=== PATIENT | male | born 1975 | race Hispanic/Latino ===

== ENCOUNTER 2018-06-19 14:10 | Emergency (ER) | payer MEDICARE, MEDICAID ==
--- NOTE | 2018-06-19 15:57 | ED PDOC ---
HPI: Trauma/Fall - HPI Time Seen by Provider: 06/19/18 14:50 Chief Complaint (Nursing): Trauma Chief Complaint (Provider): Trauma History Per: Patient Additional Complaint(s): 42 y/o M with hx of ulcerative colitis, chronic pain on chronic opioids, and depression who presents with trauma after fall in a hotel room today. Pt states that he was walking in his hotel room today and went to open curtains to see more when he tripped and fell over the garbage can, which he stated several times was not in the right place as usually they place it under the desk. Pt states that he fell onto B/L knees then fell forward onto his face. Denies drinking alcohol or drug use. He is unsure if he had LOC but then states that he recalled what happened after the event. He had some visual blurriness immediately after the event but has none now. He has neck pain and is concerned about his neck as he had cervical spine fusion in the past. Denies N/V, BARTON. Admits to being in pain management and taking oxycodone but denies taking any medications today. - Fall Fall:Prior To Injury: Tripped, Lost Balance Past Medical History Reviewed: Historical Data, Nursing Documentation, Vital Signs - Medical History Other PMH: ulcerative colitis, chronic pain - Family History Family History: States: Unknown Family Hx - Home Medications Home Medications: Ambulatory Orders Medication Instructions Recorded Acetaminophen [Tylenol 325mg tab] 650 mg PO Q6 PRN 7 Days tab 06/19/18 - Allergies Allergies/Adverse Reactions: Allergies Allergy/AdvReac Type Severity Reaction Status Date / Time Penicillins Allergy Severe ANAPHYLAXIS Verified 06/19/18 15:20 metoclopramide [From Reglan] AdvReac Intermediate PAIN Verified 06/19/18 15:19 Physical Exam - Reviewed Nursing Documentation Reviewed: Yes Vital Signs Reviewed: Yes - Physical Exam Appears: Positive for: Uncomfortable Head Exam: Negative for: ATRAUMATIC (+ swelling and mild ecchymosis over nasal bridge and forehead. ) Skin: Positive for: Rash (multiple areas of excoriation on ears, face, arms. mild erythematous irritation in intertrigenous area in lower abdomen, no swelling or drainage.) Eye Exam: Positive for: EOMI, PERRL, Nystagmus. Negative for: Periorbital swelling ENT: Positive for: TM Is/Are (normal. + excoriation in earlobe). Negative for: Sinus Pain/Drainage, Nasal Congestion Neck: Positive for: Decreased ROM (with left lateral rotation and flexion at the neck) Cardiovascular/Chest: Positive for: Regular Rate, Rhythm Respiratory: Positive for: Normal Breath Sounds Gastrointestinal/Abdominal: Positive for: Normal Exam Back: Positive for: Normal Inspection, Vertebral Tenderness (mild cervical spine tenderness on palpation), Other Extremity: Positive for: Normal ROM (flexion and extension of ankle and knees B/L), Other (no ecchymosis, swelling or deformity noted. Mild tenderness on palpation of left knee. ) Neurologic/Psych: Positive for: Alert, lute packer or applier II-XII (intact, able to perform alternating finger to nose), Oriented. Negative for: Aphasia, Facial Droop Medical Decision Making Medical Decision Making: Cervical spine, head and maxillofacial CT Toradol 30mg IM x 1 Left knee x-ray 17:50: re-evaluated, continues to have B/L anterior thigh numbness. Pt noted to have been ambulating with stable gait around room several times during ER visit. Continues to have neck pain but Toradol has not been given as of yet. Head CT: FINDINGS: HEMORRHAGE: No acute parenchymal, subarachnoid or extra-axial hemorrhage. BRAIN: No evidence of large acute infarct. No obvious parenchymal nor extra-axial masses or collections seen on this noncontrast study. VENTRICLES: No obstructive hydrocephalus. Note made of mild asymmetry of the lateral ventricles right-sided which is slightly larger than the left side felt to be a anatomic variation. CALVARIUM: Calvarium appears grossly intact.. PARANASAL SINUSES: Unremarkable as visualized. No significant inflammatory changes. MASTOID AIR CELLS: Unremarkable as visualized. No inflammatory changes. OTHER FINDINGS: Note made what appears to represent a left mandibular condylar prosthesis which has been attached by a side plate to the lateral aspect of the left mandibular ramus. IMPRESSION: No acute intracranial hemorrhage.. Cervical Spine CT: FINDINGS: VERTEBRAE: No acute compression fractures nor retropulsed fragments. Vertebral bodies exhibit normal stature. There has been ACDF at the C5-C6 level.. Two level anterior fixation plate is attached to the C5 and C6 segments. Hardware appears intact without evidence of loosening or infection. DISCS/SPINAL CANAL/NEURAL FORAMINA: Degenerative spondylosis at the C5-C6 level includes small irregular osteophytic ridge changes contiguous with hypertrophic uncovertebral joints right larger than left. The facets also hypertrophic more so on the right side. There is bilateral foraminal stenosis of right greater than left. Central canal appears slightly narrowed as well. The at the C6-C7 level, the slightly overgrown uncovertebral joints are present. The exit foramina appear narrowed bilaterally. No large disc herniation is identified.. The remaining levels exhibit relatively adequate disc height. No disc herniation or significant disc bulges. Facet joints are mildly hypertrophic bilaterally at the C2-C3 level right greater than left the slightly overgrown bilaterally at the C3-C4 level with mild to moderate facet overgrowth L4-L5 level.. PARASPINAL SOFT TISSUES: Unremarkable. OTHER FINDINGS: Mild passive/dependent type atelectasis felt be present both lung apices.. IMPRESSION: ACDF C5-C6 level. Hardware appears intact without evidence of failure. Degenerative. Mild multilevel degenerative spondylosis most notably affecting the C5-C6 level as detailed above. Maxillofacial CT: FINDINGS: NASAL BONES: No definitive evidence of acute displaced nasal bone fractures however there may be questionable old of nasal bone fracture deformities. There is mild soft tissue swelling overlying the nasal bones with extension medially into the pre maxillary soft tissues. . ORBITS: There may also be some mild supraorbital and inferior frontal soft tissue swelling. Globes intact and lenses appropriately located. There are no retrobulbar hemorrhages or collections. Optic nerves and extraocular musculature unremarkable. PARANASAL SINUSES/ MASTOIDS: Minimal mucosal thickening within the sphenoid sinus. Minimal mucosal thickening right maxillary antrum. MAXILLA: Unremarkable. MANDIBLE/ TEMPOROMANDIBULAR JOINTS: Note there is a left mandibular condylar prosthesis which has been attached by a side plate to the lateral aspect of the left mandibular ramus. Degenerative changes right TMJ with anterior subluxation with respect to the right mandibular condylar fossa. . SKULL BASE: Unremarkable. TEMPORAL BONES: Middle ears and mastoid grossly unremarkable. OTHER FINDINGS: None. IMPRESSION: The questionable old healed fracture deformities of the nasal bones. There is mild soft tissue swelling overlying the nasal bones which extend medially into the pre maxillary soft tissues and. There may also be some mild supraorbital/inferior frontal soft tissue swelling. Left mandibular condylar prosthesis which has been attached by a side plate to the lateral aspect of the left mandibular ramus. Degenerative changes right TMJ with anterior subluxation with respect to the right mandibular condylar fossa. Patient advised to f/u with neurology re: thigh numbness and to return to ER if he is unable to ambulate due to leg weakness. Referrals to orthopedics and neurology given upon discharge. Patient demonstrated understanding and ambulated with a steady gait without assistance upon discharge. Disposition - Clinical Impression Clinical Impression: Facial trauma - Patient ED Disposition Is Patient to be Admitted: No Counseled Patient/Family Regarding: Studies Performed, Diagnosis, Need For Followup, Rx Given - Disposition Referrals: Philly Martin MD [Medical Doctor] - Reji Dickson MD [Staff Provider] - Disposition: Routine/Home Disposition Time: 18:00 Condition: STABLE Additional Instructions: F/u with a neurologist or orthopedist for further evaluation of thigh numbness if it persists. Take Tylenol for pain or Aleve (Naproxen) if you have tolerated it in the past. Return to ER if you develop inability to walk, dizziness, nausea or vomiting. Prescriptions: Acetaminophen [Tylenol 325mg tab] 650 mg PO Q6 PRN 7 Days tab PRN Reason: Pain, Moderate (4-7) Forms: [facility] (Slovak) Print Language: SAMMARINESE
--- NOTE | 2018-06-19 16:47 | CT ---
Date of service: 06/19/2018 PROCEDURE: CT HEAD WITHOUT CONTRAST. HISTORY: Questionable high LOC after facial trauma COMPARISON: Correlation made with concurrent CT scan maxillofacial skeleton.. TECHNIQUE: Axial computed tomography images were obtained through the head/brain without intravenous contrast. Radiation dose: Total exam DLP = 1551.4 mGy-cm. This CT exam was performed using one or more of the following dose reduction techniques: Automated exposure control, adjustment of the mA and/or kV according to patient size, and/or use of iterative reconstruction technique. FINDINGS: HEMORRHAGE: No acute parenchymal, subarachnoid or extra-axial hemorrhage. BRAIN: No evidence of large acute infarct. No obvious parenchymal nor extra-axial masses or collections seen on this noncontrast study. VENTRICLES: No obstructive hydrocephalus. Note made of mild asymmetry of the lateral ventricles right-sided which is slightly larger than the left side felt to be a anatomic variation. CALVARIUM: Calvarium appears grossly intact.. PARANASAL SINUSES: Unremarkable as visualized. No significant inflammatory changes. MASTOID AIR CELLS: Unremarkable as visualized. No inflammatory changes. OTHER FINDINGS: Note made what appears to represent a left mandibular condylar prosthesis which has been attached by a side plate to the lateral aspect of the left mandibular ramus. IMPRESSION: No acute intracranial hemorrhage..
--- NOTE | 2018-06-19 16:53 | CT ---
Date of service: 06/19/2018 PROCEDURE: CT MAXILLOFACIAL BONES WITHOUT CONTRAST HISTORY: Fall onto face with nasal swelling status COMPARISON: None available. TECHNIQUE: Contiguous axial CT images of the maxillofacial bones were obtained. Coronal and sagittal reformats were generated. Radiation dose: Total exam DLP = 1551.4 mGy-cm. This CT exam was performed using one or more of the following dose reduction techniques: Automated exposure control, adjustment of the mA and/or kV according to patient size, and/or use of iterative reconstruction technique. FINDINGS: NASAL BONES: No definitive evidence of acute displaced nasal bone fractures however there may be questionable old of nasal bone fracture deformities. There is mild soft tissue swelling overlying the nasal bones with extension medially into the pre maxillary soft tissues. . ORBITS: There may also be some mild supraorbital and inferior frontal soft tissue swelling. Globes intact and lenses appropriately located. There are no retrobulbar hemorrhages or collections. Optic nerves and extraocular musculature unremarkable. PARANASAL SINUSES/ MASTOIDS: Minimal mucosal thickening within the sphenoid sinus. Minimal mucosal thickening right maxillary antrum. MAXILLA: Unremarkable. MANDIBLE/ TEMPOROMANDIBULAR JOINTS: Note there is a left mandibular condylar prosthesis which has been attached by a side plate to the lateral aspect of the left mandibular ramus. Degenerative changes right TMJ with anterior subluxation with respect to the right mandibular condylar fossa. . SKULL BASE: Unremarkable. TEMPORAL BONES: Middle ears and mastoid grossly unremarkable. OTHER FINDINGS: None. IMPRESSION: The questionable old healed fracture deformities of the nasal bones. There is mild soft tissue swelling overlying the nasal bones which extend medially into the pre maxillary soft tissues and. There may also be some mild supraorbital/inferior frontal soft tissue swelling. Left mandibular condylar prosthesis which has been attached by a side plate to the lateral aspect of the left mandibular ramus. Degenerative changes right TMJ with anterior subluxation with respect to the right mandibular condylar fossa.
--- NOTE | 2018-06-19 17:08 | RAD ---
Date of service: 06/19/2018 PROCEDURE: Left Knee Radiographs. HISTORY: Pain. COMPARISON: None. FINDINGS: BONES: No fracture or lytic lesion. JOINTS: Minimal medial femoral tibial joint space narrowing. No prominent spurring seen. JOINT EFFUSION: None. OTHER FINDINGS: None. IMPRESSION: No fracture or lytic lesion. Minimal degenerative joint space like narrowing noted as above.
[2018-06-19 17:30] VITALS: TEMP 98.5
--- NOTE | 2018-06-19 17:30 | CT ---
Date of service: 2018-06-19 16:04:41 PROCEDURE: CT Cervical Spine without contrast HISTORY: Neck pain and thigh numbness s/p fall . COMPARISON: None available. TECHNIQUE: Axial computed tomography images were obtained of the cervical spine without the use of intravenous contrast. Coronal and sagittal reformatted images were created and reviewed. Radiation dose: Total exam DLP = 325.25 mGy-cm. This CT exam was performed using one or more of the following dose reduction techniques: Automated exposure control, adjustment of the mA and/or kV according to patient size, and/or use of iterative reconstruction technique. FINDINGS: VERTEBRAE: No acute compression fractures nor retropulsed fragments. Vertebral bodies exhibit normal stature. There has been ACDF at the C5-C6 level.. Two level anterior fixation plate is attached to the C5 and C6 segments. Hardware appears intact without evidence of loosening or infection. DISCS/SPINAL CANAL/NEURAL FORAMINA: Degenerative spondylosis at the C5-C6 level includes small irregular osteophytic ridge changes contiguous with hypertrophic uncovertebral joints right larger than left. The facets also hypertrophic more so on the right side. There is bilateral foraminal stenosis of right greater than left. Central canal appears slightly narrowed as well. The at the C6-C7 level, the slightly overgrown uncovertebral joints are present. The exit foramina appear narrowed bilaterally. No large disc herniation is identified.. The remaining levels exhibit relatively adequate disc height. No disc herniation or significant disc bulges. Facet joints are mildly hypertrophic bilaterally at the C2-C3 level right greater than left the slightly overgrown bilaterally at the C3-C4 level with mild to moderate facet overgrowth L4-L5 level.. PARASPINAL SOFT TISSUES: Unremarkable. OTHER FINDINGS: Mild passive/dependent type atelectasis felt be present both lung apices.. IMPRESSION: ACDF C5-C6 level. Hardware appears intact without evidence of failure. Degenerative. Mild multilevel degenerative spondylosis most notably affecting the C5-C6 level as detailed above.
[2018-06-19 17:34] VITALS: BP 134/77; PULSE 88; RESP 18; O2SAT 98
== END 2018-06-19 18:00 | disposition home or self-care (01) ==
LOC: H.ER 14:10
DX: S09.93XA Unspecified injury of face, initial encounter (principal); W01.0XXA Fall on same level from slipping, tripping and stumbling without subsequent striking against object, initial encounter; Y92.59 Other trade areas as the place of occurrence of the external cause; G89.29 Other chronic pain; Z86.59 Personal history of other mental and behavioral disorders; Z79.891 Long term (current) use of opiate analgesic; Z88.0 Allergy status to penicillin
CPT/HCPCS: 70450; 70486; 72125; 73562; 96372; 99285; J1885